=== PATIENT | male | born 1940 | race Caucasian/White ===

== ENCOUNTER 2017-07-10 19:13 | Inpatient (IN) | payer OTHER ==
[~2017-07-10] VITALS: Ht 175.3 cm; Wt 80.7 kg
[2017-07-10 21:18] LABS: BASOPHIL % 0.4 % (0-2); PLATELET COUNT 175 x10^3mcL (130-400); RED CELL DISTRIBUTION WIDTH 13.9 % (11.5-14.5)
[2017-07-10 21:38] LABS: CALCIUM 9.3 mg/dL (8.5-10.1); CARBON DIOXIDE 27.5 mmol/L (21-32); CHLORIDE SERUM 107 mmol/L (98-107); GLUCOSE SERUM 147 mg/dL (74-106); POTASSIUM SERUM 3.6 mmol/L (3.5-5.1); SODIUM SERUM 144 mmol/L (136-145)
[2017-07-10 21:54] LABS: ALBUMIN 3.6 g/dL (3.4-5.0); ALKALINE PHOSPHATASE 65 U/L (46-116); ALT/SGPT 29 U/L (16-63); AST/SGOT 18 U/L (15-37); BILIRUBIN TOTAL 0.4 mg/dL (0.20-1.00); TOTAL PROTEIN, SERUM 7.6 g/dL (6.4-8.2)
[2017-07-10 22:07] LABS: CK-MB 1.7 ng/mL (0-3.6)
[2017-07-10 22:55] LABS: UA SPECIFIC GRAVITY >=1.030 (1.005-1.035); microscopic required? YES; urine erythrocyte 2+ (NEGATIVE)
[2017-07-10] MEDS ORDERED: ACARBOSE25 MG PO (22:57)
[2017-07-10] MEDS ORDERED: NOR10 (22:58)
[2017-07-10] MEDS ORDERED: LIPI20 PO (22:58)
[2017-07-10] MEDS ORDERED: NOR10 PO (22:59)
[2017-07-10] MEDS ORDERED: VITAMIN D50000 I4 PO (23:01)
[2017-07-10] MEDS ORDERED: METFORMIN HCL1000 MG PO (23:01)
[2017-07-10] MEDS ORDERED: GOOD SENSE ASP325 MG PO (23:02)
[2017-07-10] MEDS ORDERED: LOSARTAN POTASS50 M1 PO (23:02)
[2017-07-10] MEDS ORDERED: GLUCOTROL5 MG PO (23:03)
[2017-07-10] MEDS ORDERED: DIOVAN160 MG PO (23:03)
[2017-07-11] VITALS (8 sets, daily range): BP systolic 141–185; BP diastolic 72–94; Ht 175.3 cm; Wt 80.7 kg
[2017-07-11] MEDS ORDERED: COMBIGAN5 ML OD (00:15)
[2017-07-11] MEDS ORDERED: AZOPT10 ML OD (00:16)
[2017-07-11] MEDS ORDERED: PREDNISOLONE ACE5 ML OS (00:18)
[2017-07-11 00:37] LABS: AMPHETAMINE QUAL UR NONE DETECTED (NEG <=1000)
[2017-07-11 00:58] LABS: T3 TOTAL 0.87 ng/mL
[2017-07-11 01:03] LABS: MAGNESIUM 1.9 mg/dL (1.8-2.4); PHOSPHOROUS 2.6 mg/dL (2.5-4.9)
[2017-07-11 01:07] LABS: CHOLESTEROL/HDL RATIO 4.9
[2017-07-11 01:13] LABS: FREE T4 0.88 ng/dL (0.76-1.46); FREE THYROXINE INDEX 2.1 ug/dL (1.4-4.5); T4(THYROXINE) 6.1 ug/dL (4.7-13.3)
[2017-07-11 05:58] LABS: BASOPHIL % 0.1 % (0-2); PLATELET COUNT 156 x10^3mcL (130-400); RED CELL DISTRIBUTION WIDTH 14.1 % (11.5-14.5)
[2017-07-11 09:32] LABS: CALCIUM 8.6 mg/dL (8.5-10.1); CARBON DIOXIDE 28.1 mmol/L (21-32); CHLORIDE SERUM 108 mmol/L (98-107); CREATININE SERUM 0.9 mg/dL (0.7-1.3); GLUCOSE SERUM 202 mg/dL (74-106); POTASSIUM SERUM 3.4 mmol/L (3.5-5.1); SODIUM SERUM 144 mmol/L (136-145)
[2017-07-12 06:34] VITALS: BP 174/97
[2017-07-12 07:12] LABS: BASOPHIL % 0.2 % (0-2); PLATELET COUNT 155 x10^3mcL (130-400); RED CELL DISTRIBUTION WIDTH 14.1 % (11.5-14.5)
[2017-07-12 07:25] LABS: MAGNESIUM 1.8 mg/dL (1.8-2.4); PHOSPHOROUS 2.6 mg/dL (2.5-4.9)
[2017-07-12 07:31] LABS: CALCIUM 8.6 mg/dL (8.5-10.1); CHLORIDE SERUM 110 mmol/L (98-107); CREATININE SERUM 0.9 mg/dL (0.7-1.3); GLUCOSE SERUM 131 mg/dL (74-106); POTASSIUM SERUM 3.3 mmol/L (3.5-5.1); SODIUM SERUM 143 mmol/L (136-145)
[2017-07-12 08:29] VITALS: BP 150/77
[2017-07-12 13:05] VITALS: BP 128/73
[2017-07-12 17:37] VITALS: BP 154/87
[2017-07-12 21:28] VITALS: BP 163/75
[2017-07-13 07:18] LABS: BASOPHIL % 0.3 % (0-2); PLATELET COUNT 162 x10^3mcL (130-400); RED CELL DISTRIBUTION WIDTH 13.9 % (11.5-14.5)
[2017-07-13 07:43] LABS: CALCIUM 8.5 mg/dL (8.5-10.1); CARBON DIOXIDE 23.2 mmol/L (21-32); CHLORIDE SERUM 105 mmol/L (98-107); GLUCOSE SERUM 137 mg/dL (74-106); MAGNESIUM 1.7 mg/dL (1.8-2.4); PHOSPHOROUS 3.2 mg/dL (2.5-4.9); POTASSIUM SERUM 3.5 mmol/L (3.5-5.1); SODIUM SERUM 142 mmol/L (136-145)
[2017-07-13 14:00] VITALS: BP 128/77
[2017-07-13] MEDS ORDERED: COUGH100 MG/5 M PO ×2 (16:28→17:30)
[2017-07-13] MEDS ORDERED: SEROQUEL25 MG PO ×2 (17:27→17:29)
== END 2017-07-13 17:54 | disposition home health service (06) | DRG 640 ==
LOC: ED 19:13 → DU 22:32
PROVIDERS: Emergency Medicine; Family Medicine; Student in an Organized Health Care Education/Training Program
DX: E86.0 Dehydration (principal); N17.0 Acute kidney failure with tubular necrosis; I16.0 Hypertensive urgency; E11.65 Type 2 diabetes mellitus with hyperglycemia; R13.10 Dysphagia, unspecified; N28.1 Cyst of kidney, acquired; I44.7 Left bundle-branch block, unspecified; I11.9 Hypertensive heart disease without heart failure; H40.9 Unspecified glaucoma; H54.61 Unqualified visual loss, right eye, normal vision left eye; E87.6 Hypokalemia; E83.42 Hypomagnesemia; E11.51 Type 2 diabetes mellitus with diabetic peripheral angiopathy without gangrene; E03.9 Hypothyroidism, unspecified; E78.2 Mixed hyperlipidemia; I25.2 Old myocardial infarction; E66.3 Overweight; Z68.27 Body mass index [BMI] 27.0-27.9, adult; Z95.1 Presence of aortocoronary bypass graft; Z79.82 Long term (current) use of aspirin; Z79.84 Long term (current) use of oral hypoglycemic drugs
CPT/HCPCS: 82962; 83880; 84439; 90658; 92610; 97110-GP; 97116-GP; 97530-GP; J0360; J1630; J2060; J7030; Q0092